=== PATIENT | female | born 1965 | race Caucasian/White ===

== ENCOUNTER 2016-08-31 13:25 | Emergency (ER) | payer BC ==
[~2016-08-31] VITALS: Wt 47.6 kg
[~2016-08-31 13:25] MED LIST: ALLEGRA60 MG PO; ANAPROX DS550 MG PO; ATIVAN0.5 MG PO; ATIVAN1 MG PO; BIAXIN500 MG PO; COMBIVENT1 ARO IH; DELTASONE10 MG PO; FLEXERIL5 MG PO; HYDROCODONE BIT1 T11 PO; LEVOFLOXACIN500 MG PO; LEXAPRO10 MG PO; METOPROLOL SR25 MG PO; MOTRIN600 MG PO; MOTRIN800 MG PO; NICODERM C21 MG/241 TD; NKHM; TUSSI-ORGANID3840 ML PO; VENTOLIN 02.5 MG/3 M INH; ZOLOFT25 MG PO; ZYBAN150 MG PO
[2016-08-31] MEDS ORDERED: TOPROL XL25 MG PO (13:39)
[2016-08-31] MEDS ORDERED: ASPIR LOW81 MG PO (13:40)
[2016-08-31] MEDS ORDERED: BRILINTA90 M1 PO (13:40)
[2016-08-31 14:08] LABS: BASO % 0.4 % (0.0-1.0); EOS # 0.1 10*3/uL (0.0-0.4); EOS % 1.5 % (1.0-4.0); HEMATOCRIT 38.7 % (37.0-47.0); HEMOGLOBIN 12.9 g/dl (12.0-16.0); LYMPH # 2.3 10*3/uL (1.3-4.4); LYMPH % 25.2 % (27.0-41.0); MEAN CORPUSCULAR HGB CONC 33.3 g/dl (33.0-37.0); MEAN PLATELET VOLUME 10.1 fl (9.6-12.3); MONO # 0.6 10*3/uL (0.1-1.0); MONO % 6.2 % (3.0-9.0); NEUT # 5.9 10*3/uL (2.3-7.9); NEUT % 66.4 % (47.0-73.0); PLATELET COUNT AUTOMATED 208 10*3/uL (130-400); RED BLOOD COUNT 4.03 10*6/uL (4.10-5.10); RED CELL DISTRI WIDTH 15.1 % (0-14.5); WHITE BLOOD COUNT 8.9 10*3/uL (4.8-10.8)
[2016-08-31 14:25] LABS: ALBUMIN 3.9 gm/dl (3.1-4.5); ALKALINE PHOSPHATASE 80 U/L (45-117); BILIRUBIN, TOTAL 0.4 mg/dl (0.2-1.0); BUN 8 mg/dl (7-24); CARBON DIOXIDE 24 mmol/L (21-32); CHLORIDE 110 mmol/L (98-107); EST GLOM FILT AFRICAN AMERICAN > 60 ml/min; GLUCOSE 115 mg/dL (65-99); POTASSIUM 3.5 mmol/L (3.5-5.1); SGOT/AST 23 IU/L (3-35); SGPT/ALT 35 U/L (12-78); SODIUM 143 mmol/L (136-145); TOTAL PROTEIN 6.8 gm/dL (6.4-8.2)
[2016-08-31 14:35] LABS: TROPONIN I < 0.015 ng/ml (<0.045)
== END 2016-08-31 15:56 | disposition home or self-care (01) ==
LOC: ED 13:25
PROVIDERS: Emergency Medicine
DX: R07.89 Other chest pain (principal); I99.8 Other disorder of circulatory system; F17.200 Nicotine dependence, unspecified, uncomplicated; Z79.899 Other long term (current) drug therapy; Z79.82 Long term (current) use of aspirin

== ENCOUNTER 2017-10-28 15:54 | Emergency (ER) | payer BC ==
[~2017-10-28] VITALS: Wt 44.5 kg
[~2017-10-28 15:54] MED LIST changes: +ASPIR LOW81 MG PO; +BRILINTA90 M1 PO; +TOPROL XL25 MG PO
[2017-10-28] MEDS ORDERED: VIBRAMYCIN100 MG PO (15:59)
== END 2017-10-28 16:09 | disposition home or self-care (01) ==
LOC: ED 15:54
DX: L03.113 Cellulitis of right upper limb (principal); R03.0 Elevated blood-pressure reading, without diagnosis of hypertension; Z79.82 Long term (current) use of aspirin

== ENCOUNTER 2023-11-11 03:46 | Emergency (ER) | payer BC ==
[~2023-11-11] VITALS: Ht 149.8 cm; Wt 34.0 kg
[~2023-11-11 03:46] MED LIST changes: +VIBRAMYCIN100 MG PO
[2023-11-11] MEDS ORDERED: Ondansetron Hydrochloride 4 MG/2 ML VIAL IV ONE ×2 (04:55→08:10)
[2023-11-11] MEDS ORDERED: MORPHINE Sulfate 2 MG/ML SYR IV ONE (04:55)
[2023-11-11] MEDS ORDERED: HYDROmorphONE Hydrochloride 0.5 MG/0.5 ML SYRINGE IV ONE (08:10)
[2023-11-11] MEDS ORDERED: LEVOFLOXACIN 750 MG TAB PO ONE (09:25)
[2023-11-11] MEDS ORDERED: LEVOFLOXACIN750 M2 PO (09:30)
== END 2023-11-11 10:08 | disposition home or self-care (01) ==
LOC: ED 03:46
DX: C34.91 Malignant neoplasm of unspecified part of right bronchus or lung (principal); J18.9 Pneumonia, unspecified organism; F41.9 Anxiety disorder, unspecified; I10 Essential (primary) hypertension; Z95.5 Presence of coronary angioplasty implant and graft; Z98.51 Tubal ligation status; Z98.890 Other specified postprocedural states